=== PATIENT | female | born 1955 | race Caucasian/White ===

== ENCOUNTER → 2016-12-04 | Day surgery (SDC) | payer OTHER ==
[~2016-12-04] VITALS: Ht 167.6 cm; Wt 59.0 kg
[~2016-12-04] MED LIST: *morphine SULFATE 8 MG/ML PERIprocedure ONLY ONE; ACETAMINOPHEN 1000 MG/100 ML 100 ML IV ONE; ACETAMINOPHEN/HYDROcodone 325 MG/5 MG TAB ONE; ACETAMINOPHEN/HYDROcodone 325 MG/5 MG TAB PO PRN; CHLORHEXIDINE GLUCONATE 2 % 1 PACK (2 CLOTHS) TOPICAL PRN; DEXAMETHASONE SOD PHOS 4 MG/ML VIAL ONE; DO NOT ADM ANY ANTICOAGULANT DRUGS PRN; FAMOTIDINE 20 MG/2 ML VIAL ONE; GLYCOPYRROLATE 1 MG/5 ML SYRINGE IV PUSH ONE; INSULIN HUMAN REGULAR 1,000 UNITS/10 ML VIAL SQ PRN; KETOROLAC TROMETHAMINE 60 MG/2 ML (IM) VIAL IM ONE; LACTATED RINGER'S 1000 ML INJ 1,000 ML IV ONE; LACTATED RINGER'S 1000 ML IV PRN; LIDOCAINE HCL 1% PF 5 ML AMPULE OTHER ONE; MEPERIDINE HCL 50 MG/ML VIAL IM PRN; METOPROLOL TARTRATE 25 MG TAB PO PRN; MIDAZOLAM HCL 2 MG/2 ML VIAL ONE; NEOSTIGMINE 3 MG/3 ML SYR IV ONE; ONDANSETRON HCL 4 MG/2 ML VIAL IV PUSH ONE; ONDANSETRON ODT 4 MG TAB PO PRN; PHENYLEPH/NS 1000 MCG/10 ML SYR IV ONE; POVIDONE IODINE 5% (ANTISEPSIS KIT) 4 APPLICATIONS EACH NARE PRN; POVIDONE IODINE 7.5% SCRUB 118 ML BOTTLE TOPICAL SCH; PROPOFOL 200 MG/20 ML AMP IV ONE; ROCURONIUM INJ 50 MG/5 ML SYRINGE IV PUSH ONE; SODIUM CHLORID 0.9% 500 ML IV PRN; ceFAZolin 2 GM PREMIX 50 ML IV SCH; ceFAZolin 2 GM PREMIX 50 ML ONE; ePHEDrine/NS 25 MG/5 ML SYR IV ONE
--- NOTE | 2016-12-04 10:46 | MH ---
cc: Zaki GUZMAN M.D. DATE OF ADMISSION: 12/04/2016 ADMITTING DIAGNOSIS: Displaced fracture, right patella now being admitted for open reduction internal fixation of right patella fracture. HISTORY OF PRESENT ILLNESS: This pleasant 61-year-old female fell two days ago sustaining injury to her right patella for which she is undergoing open reduction internal fixation. PAST MEDICAL HISTORY: The patient has no medical problems. PAST SURGICAL HISTORY: She has never had surgery. MEDICATIONS: She takes no medications. FAMILY HISTORY: Noncontributory. REVIEW OF SYSTEMS: Noncontributory. SOCIAL HISTORY: She does smoke cigarettes. She does not drink alcohol. ALLERGIES: SHE HAS NO KNOWN ALLERGIES. PHYSICAL EXAMINATION: GENERAL: We find a 61-year-old female well-developed, well-nourished and alert and oriented times three complaining of pain in her right patella. VITAL SIGNS: Blood pressure 98/62, pulse 78 and regular, respirations 18, temperature 98.2, pulse oximetry 97% on room air. HEAD, EYES, EARS, NOSE, THROAT: Pupils equal, round and reactive to light and accommodation. Extraocular muscles intact. Ears, nose and mouth clear. NECK: The neck is supple. LUNGS: The lungs are clear. HEART: Regular rate. ABDOMEN: Abdomen soft. Positive bowel sounds. Nontender. EXTREMITIES: Extremities reveal the right knee to be tender and swollen. She is neurovascularly intact to her toes. IMPRESSION AT THIS TIME: Displaced transverse fracture right patella. PLAN: The plan is for admission for open reduction internal fixation right patella fracture. Today the patient was given a prescription for postoperative pain control in the office. MD JASMINA Davis/IRISH /12:21 PM /10:42 AM
--- NOTE | 2016-12-04 13:47 | EKG ---
Date Performed: 12/04/2016 Time Performed: 09:14:13 PTAGE: 61 years EKG: Sinus rhythm WITH SHORT GA INTERVAL BORDERLINE ECG NO PREVIOUS TRACING DOCTOR: Chaparro Martinez Interpretating Date/Time 12/04/2016 13:46:22
[2016-12-04 14:10] VITALS: BP 110/56; PULSE 58; RESP 20; TEMP 97.5; O2SAT 97
--- NOTE | 2016-12-04 15:26 | RADRPT ---
EXAM DATE/TIME: 12/04/2016 11:59 [facility] COMPARISON: FLUOROSCOPY PORTABLE UP TO 1HR, December 04, 2016, 0:00. INDICATIONS : Open reduction, internal fixaction of right patella. MEDICAL HISTORY : None. SURGICAL HISTORY : None. ENCOUNTER: Initial ACUITY: 1 day PAIN SCORE: Non-responsive. LOCATION: Right knee FINDINGS: The examination demonstrates 3 partially threaded screws across the patient's patellar fracture. The fracture appears well aligned. CONCLUSION: 1. The fracture of the patella appears well aligned post fixation. Loc Tyler MD on December 04, 2016 at 15:24 Board Certified Radiologist. This report was verified electronically.
--- NOTE | 2016-12-07 08:50 | MP ---
cc: Zaki HOWELL M.D. DATE OF SURGERY: 12/04/2016 PREOPERATIVE DIAGNOSIS Displaced fracture right patella. POSTOPERATIVE DIAGNOSIS Displaced fracture right patella. SURGERY PERFORMED Open reduction, internal fixation of right patella fracture with three cannulated Synthes screws. SURGEON Dr. Howell. VEGETABLE SCULLION Colt Ureña. ANESTHESIA General intubation. PROCEDURE The patient was brought to the operating room and placed on the operating table in supine position. After successful induction of general anesthesia the patient's right knee, thigh and leg were prepped and draped in the usual manner. A longitudinal incision was then made centering over the patella 6 inches in length, carried down through subcutaneous tissue to expose the retinaculum over the patella which was found to be torn directly over the midportion of the patella with a defect noted. The retinaculum was removed off of the surface of the patella. The patella was found to have a transverse fracture which was displaced and one small piece of comminution noted. Using a curette the patella fracture was debrided and cleaned of all nonviable tissue. The joint was irrigated copiously with lactated Ringer's solution. The patella was then approximated using Synthes reduction clamps while three pins were inserted from inferior to superior through the midportion of the patella in parallel fashion. Three 4.0 cannulated screws were then inserted over the pins, a 26 mm, 32 mm and a 42 mm, after measuring the depths of the pins. The screws were then tightened, the fracture compressed, the guide pins removed and a #2 FiberWire was used to supplement the fixation and repair of the one-piece of comminution with the use of the FiberWire. Full range of motion of patella was then appreciated with no instability and no movement at the fracture site upon full flexion. The wound was again irrigated copiously with antibiotic solution and meticulous hemostasis achieved. Subcutaneous tissue was approximated using interrupted 2-0 and a running 4-0 Monocryl suture, Steri-Strips, sterile dressing and knee immobilizer. No tourniquet was utilized and no drain utilized. Estimated blood loss was 50 ccs. Sponge and suture count were correct. The patient tolerated the procedure well and left the OR in stable condition. MD JASMINA Davis/SAJAN /12:45 PM /8:23 AM
== END | disposition home or self-care (01) ==
LOC: HSDC 08:31
PROVIDERS: ATTEND Surgery
DX: S82.031A Displaced transverse fracture of right patella, initial encounter for closed fracture (principal); W19.XXXA Unspecified fall, initial encounter; Z87.891 Personal history of nicotine dependence; Z01.810 Encounter for preprocedural cardiovascular examination
CPT/HCPCS: 01392; 27524; 73560; 76000; 93005; C1713; J0131; J0690; J1100; J1885; J2250; J2270; J2405; J2710; J7120; J2370; J3010